=== PATIENT | male | born 1975 | race Caucasian/White ===

== ENCOUNTER 2019-01-19 21:09 | Emergency (ER) | payer SELFPAY ==
[2019-01-19] MEDS ORDERED: Sodium Chloride 0.9% 1,000 ML ONE (21:19)
[2019-01-19] MEDS ORDERED: Famotidine In NaCl 20 mg/50 ml Premix Bag ONE (21:19)
[2019-01-19] MEDS ORDERED: diphenhydrAMINE 50 MG/ML VIAL ONE (21:19)
[2019-01-19] MEDS ORDERED: methylPREDNISolone Sod Succ/PF 125 MG/2 ML VIAL ONE (21:19)
[2019-01-19] MEDS ORDERED: Ondansetron PF 4 MG/2 ML Vial ONE ×2 (21:28→21:31)
[2019-01-19 21:35] LABS: #Basophils 0.1 thou/uL (0.0-0.2); #Lymphocytes 0.6 thou/uL (1.20-3.40); #Monocytes 0.5 thou/uL (0.11-0.59); #Neutrophils 9.5 thou/uL (1.40-6.50); %Basophils 0.5 % (0.0-1.0); %Eosinophils 0.1 % (0.0-10.0); %Lymphocytes 5.8 % (21.0-51.0); %Monocytes 4.5 % (0.0-10.0); %Neutrophils 89.1 % (42.0-75.0); Hemoglobin 15.6 g/dL (14.0-18.0); Mean Corpuscular HGB CONC 32.7 g/dL (32.0-36.0); Mean Corpuscular Hemoglobin 29.5 pg (27.0-31.0); Mean Corpuscular Volume 90.3 fL (78.0-98.0); Mean Platelet Volume 7.9 fL (7.4-10.4); Platelet Count 195 thou/uL (130-400); RBC Distribution Width 12.2 % (11.5-14.5); Red Blood Cell (RBC) Count 5.27 mill/uL (4.70-6.10); White Blood Cell (WBC) Count 10.7 thou/uL (4.8-10.8)
[2019-01-19 21:50] LABS: Anion Gap 20 mmol/L (10-20); BUN (Urea Nitrogen) 18 mg/dL (8.9-20.6); Calc. Creatinine Clearance 0 mL/min (70-130); Calcium 9.8 mg/dL (7.8-10.44); Carbon Dioxide 20 mmol/L (22-29); Chloride 109 mmol/L (98-107); Estimated GFR-MDRD 52; Glucose 175 mg/dL (70-105); Potassium 4.1 mmol/L (3.5-5.1); Sodium 145 mmol/L (136-145)
== END 2019-01-19 22:48 | disposition home or self-care (01) ==
LOC: MADERS 21:09
DX: T63.441A Toxic effect of venom of bees, accidental (unintentional), initial encounter (principal)
CPT/HCPCS: 80048; 82550; 85025; 94760; 96361; 96365; 96375; J1200; J2405; J2930; J7050

== ENCOUNTER 2024-01-02 15:04 | Emergency (ER) | payer SELFPAY ==
[2024-01-02] MEDS ORDERED: Bacitracin 1 PK ONE (15:26)
== END 2024-01-02 15:42 | disposition home or self-care (01) ==
LOC: MADERS 15:04
DX: T23.101A Burn of first degree of right hand, unspecified site, initial encounter (principal); X08.8XXA Exposure to other specified smoke, fire and flames, initial encounter
CPT/HCPCS: 99283